=== PATIENT | female | born 1980 | race American Indian/Alaskan Native ===

== ENCOUNTER 2019-04-28 06:23 | Day surgery (SDC) | payer MEDICAID ==
[2019-04-28] MEDS ORDERED: DILAUDID IV PRN (07:31)
[2019-04-28] MEDS ORDERED: ZOFRAN IV PRN (07:31)
--- NOTE | 2019-04-28 07:32 | Anesthesia Consultation ---
Anesthesia Consult and Med Hx Date of service: 04/28/19 - Airway Anesthetic Teeth Evaluation: Good ROM Head & Neck: Adequate Mental/Hyoid Distance: Adequate Mallampati Class: Class II Intubation Access Assessment: Good - Pulmonary Exam CTA: Yes - Cardiac Exam Cardiac Exam: RRR - Pre-Operative Health Status ASA Pre-Surgery Classification: ASA2 (smokes half a pack daily ) Proposed Anesthetic Plan: General - Pulmonary Hx Smoking: Yes Hx Sleep Apnea: Yes (probable but not confirmed, has sleep study pending) - Central Nervous System Hx Psychiatric Problems: Yes - Endocrine Hx Liver Disease: Yes (elevated liver enzymes) - Hematic Hx Anemia: No - Other Systems Hx Substance Use: Yes (Marijuana daily) Hx Cancer: No
--- NOTE | 2019-04-28 07:33 | Anesthesia Day of Surgery ---
Anesthesia Day of Surgery - Day of Surgery Patient Examined: Yes Patient H&P Reviewed: Yes Patient is NPO: Yes
[2019-04-28] MEDS ORDERED: ZEMURON IV ONE (07:43)
[2019-04-28] MEDS ORDERED: XYLOCAINE MPF 2% ONE (07:43)
[2019-04-28] MEDS ORDERED: SUBLIMAZE ONE (07:43)
[2019-04-28] MEDS ORDERED: DIPRIVAN 10 MG/ML IV ONE (07:43)
[2019-04-28] MEDS ORDERED: DECADRON ONE (07:43)
[2019-04-28] MEDS ORDERED: ROBINUL ONE (07:44)
[2019-04-28] MEDS ORDERED: BLOXIVERZ ONE (07:44)
--- NOTE | 2019-04-28 07:46 | Short Stay Summary ---
Short Stay Documentation Date of service: 04/28/19 Narrative H&P: Pt is a 38yo BF LMP 04/22/19 presents for permanent sterilization. - History Principal diagnosis: Desires permanent sterilization H&P: obtained from office Past Medical History: No medical history Past Surgical History: cholecystectomy Social history: no significant social history, - Allergies and Medications Current Medications: Allergies No Known Allergies Allergy (Verified 04/23/19 11:29) Home Medications Medication Instructions Recorded Confirmed Last Taken Type Citalopram [celeXA] 20 mg PO QDAY 04/23/19 04/23/19 Unknown History Active Medications Hydromorphone HCl (Dilaudid) 0.5 mg IV Q10MIN PRN PRN Reason: Pain , Severe (7-10) Lactated Ringer's (Lactated Ringers) 1,000 mls @ 100 mls/hr IV DIRECT FIDEL Cefazolin Sodium (Ancef/Sterile Water 2 Gm/20 Ml) 2 gm in 20 mls @ 80 mls/hr IV PREOP NR; Protocol Stop: 04/28/19 20:00 Midazolam HCl (Versed) 2 mg IV PREOP NR Stop: 04/28/19 23:59 Ondansetron HCl (Zofran) 4 mg IV ONCE PRN PRN Reason: Nausea And Vomiting - Physical exam General appearance: no acute distress Integumentary: no rash HEENT: Atraumatic Lungs: Clear to auscultation Breasts: deferred Heart: Regular rate Gastrointestinal: normal Female Genitourinary: deferred Rectal Exam: deferred Extremities: no ischemia, No edema Neurological: Normal gait, Normal speech - Brief post op/procedure progress note Date of procedure: 04/28/19 Pre-op diagnosis: Desires permanent sterilization Post-op diagnosis: same Procedure: Laproscopic Bilateral Tubal Ligation Anesthesia: GETA Findings: Normal uterus. Normal tubes and ovaries bilaterally. Surgeon: URIEL FIGUEROA Estimated blood loss: minimal Pathology: none Condition: stable - Hospital course Hospital course: Unremarkable. - Disposition Condition at discharge: Good Disposition: DC-01 TO HOME OR SELFCARE - Discharge Diagnoses (1) Encounter for sterilization Status: Resolved Short Stay Discharge Plan Activity: no restrictions Diet: regular Wound: open to air, keep clean and dry Follow up with: ARSLAN JARQUIN [Other] - 7 Days URIEL FIGUEROA MD [Staff Physician] - 14 Days Prescriptions: HYDROcodone/APAP 5-325 [Seminary 5/325] 1 each PO Q6HR PRN #20 tablet PRN Reason: Pain
[2019-04-28] MEDS ORDERED: KETAMINE 50 MG/ML-WATER SYRING ONE (07:49)
[2019-04-28] MEDS ORDERED: ANCEF/STERILE WATER 2 GM/20 ML 2 GM/20 ML SYRINGE IV NR (08:00)
[2019-04-28] MEDS ORDERED: VERSED IV NR (08:00)
[2019-04-28] MEDS ORDERED: LACTATED RINGERS 1,000 ML IV SCH (08:00)
[2019-04-28] MEDS ORDERED: MARCAINE 0.5% INFILTRATI ONE ×2 (08:07→08:20)
[2019-04-28 08:19] LABS: Hematocrit 29.8 % (30.3-42.9); Hemoglobin 9.4 gm/dl (10.1-14.3)
[2019-04-28] MEDS ORDERED: NACL 0.9% IR ONE (08:20)
[2019-04-28] MEDS ORDERED: BRIDION IV ONE (09:09)
[2019-04-28] MEDS ORDERED: APRESOLINE ONE (09:38)
[2019-04-28] MEDS ORDERED: APRESOLINE IV ONE (10:00)
[2019-04-28] MEDS ORDERED: NORCO 5/325 PO PRN (10:00)
[2019-04-28 10:08] VITALS: BP 129/81
--- NOTE | 2019-04-28 11:25 | Operative Report ---
Operative Report Operative Report: PREOPERATIVE DIAGNOSIS: Desires permanent sterilization POSTOPERATIVE DIAGNOSIS: Same OPERATIVE PROCEDURE: Laparoscopic bilateral tubal ligation. SURGEON: Charlie Cruz MD ANESTHESIA: Gen. endotracheal intubation ANESTHESIOLOGIST: Dr. Salamanca ESTIMATED BLOOD LOSS: Minimal FINDINGS: Normal uterus with normal tubes and ovaries bilaterally. COMPLICATIONS: None COUNTS: Correct x3. PROCEDURE: After the patient was correctly identified and after general anesthesia was administered, the patient was prepped and draped in usual sterile fashion and placed in dorsal lithotomy position. First, the bladder was emptied using a straight catheter. Next, a speculum was placed in the vaginal vault and the anterior lip of the cervix was grasped using a single-tooth tenaculum. The uterine manipulator was then placed and the tenaculum and speculum were removed. Attention was then turned to the abdomen where first a periumbilical incision was made using a skin knife, and the Optiview trocar was inserted under direct visualization. After an adequate amount of abdominal insufflation, visualization of the pelvic organs found the uterus to be normal with tubes and ovaries bilaterally. Next, the left fallopian tube was grasped using the Kleppingers, and after identifying the fimbriated end of the left tube, this tube was cauterized in 3 continuous places along the proximal portion of the left tube. The same procedure was performed on the right fallopian tube after first identifying the fimbriated end of the right tube. This tube was also cauterized in 3 continuous places along the proximal portion of the right tube. At this point, the procedure was then considered complete. All instruments were removed from the abdomen. The abdomen was deflated and the periumbilical incision was closed using 0 Vicryl suture in a [id number] configuration on the fascia, followed by 4-0 Monocryl suture in sub-cuticular fashion on the skin. The incision was also infiltrated using 0.5% Marcaine solution. The uterine manipulator was removed. The patient tolerated the procedure well and was transferred to recovery room stable condition.
--- NOTE | 2019-04-28 13:51 | Post Anesthesia Evaluation ---
- Post Anesthesia Evaluation Patient Participated: Yes Airway Patent: Yes Stable Respiratory Function: Yes Nausea/Vomiting: No Temp > 96.8F: Yes Pain Manageable: Yes Adequeate Hydration: Yes Anesthesia Complications: No Block Receding Appropriately: Not Applicable Patient on Ventilator: No
== END 2019-04-28 10:45 | disposition home or self-care (01) ==
LOC: OR 06:23
PROVIDERS: ATTEND Obstetrics & Gynecology
DX: Z30.2 Encounter for sterilization (principal); K21.9 Gastro-esophageal reflux disease without esophagitis; G47.30 Sleep apnea, unspecified; F41.9 Anxiety disorder, unspecified; F17.210 Nicotine dependence, cigarettes, uncomplicated; Z79.899 Other long term (current) drug therapy; Z90.49 Acquired absence of other specified parts of digestive tract; Z98.890 Other specified postprocedural states
CPT/HCPCS: 36415; 58670; 81025; 85014; 85018; J0360; J0690; J1100; J2250; J2405; J2704; J2710; J3010; J7120